=== PATIENT | male | born 1955 | race Caucasian/White ===

== ENCOUNTER 2021-09-20 18:00 | Inpatient (IN) | payer OTHER, MEDICARE ==
[2021-09-20] MEDS ORDERED: Aspirin Chewable 81 MG TAB ONE (18:28)
[2021-09-20 18:29] LABS: #Eosinphils 0.1 thou/uL (0.0-0.7); #Lymphocytes 1.5 thou/uL (1.20-3.40); #Monocytes 0.7 thou/uL (0.11-0.59); #Neutrophils 3.1 thou/uL (1.40-6.50); %Basophils 0.4 % (0.0-1.0); %Eosinophils 2.5 % (0.0-10.0); %Lymphocytes 28.2 % (21.0-51.0); %Monocytes 12.4 % (0.0-10.0); %Neutrophils 56.5 % (42.0-75.0); Hemoglobin 16.4 g/dL (14.0-18.0); Mean Corpuscular HGB CONC 32.6 g/dL (32.0-36.0); Mean Corpuscular Hemoglobin 28.6 pg (27.0-31.0); Mean Corpuscular Volume 87.5 fL (78.0-98.0); Mean Platelet Volume 7.6 fL (7.4-10.4); Platelet Count 220 thou/uL (130-400); RBC Distribution Width 12.8 % (11.5-14.5); Red Blood Cell (RBC) Count 5.73 mill/uL (4.70-6.10); White Blood Cell (WBC) Count 5.5 thou/uL (4.8-10.8)
[2021-09-20 19:01] LABS: ALT (SGPT) 48 U/L (8-55); AST (SGOT) 53 U/L (5-34); Albumin 4.1 g/dL (3.4-4.8); Alkaline Phosphatase 64 U/L (40-110); Anion Gap 13 mmol/L (10-20); BUN (Urea Nitrogen) 8 mg/dL (8.4-25.7); Bilirubin, Total 0.4 mg/dL (0.2-1.2); Calc. Creatinine Clearance 0 mL/min (70-130); Calcium 9.6 mg/dL (7.8-10.44); Carbon Dioxide 24 mmol/L (23-31); Chloride 102 mmol/L (98-107); Globulin 4.5 g/dL (2.4-3.5); Glucose 107 mg/dL (80-115); Lipase 38 U/L (8-78); Potassium 4.1 mmol/L (3.5-5.1); Protein, Total 8.6 g/dL (5.8-8.1); Sodium 135 mmol/L (136-145)
[2021-09-20] MEDS ORDERED: Enoxaparin Sodium 100 MG/ML SYRINGE ONE (19:05)
[2021-09-20] MEDS ORDERED: Communication Order-Pharmacy FS SCH (19:45)
[2021-09-20] MEDS ORDERED: Ondansetron ODT 4 MG TAB PO PRN (20:01)
[2021-09-20] MEDS ORDERED: Acetaminophen 650 MG Suppository PR PRN (20:01)
[2021-09-20] MEDS ORDERED: Acetaminophen 325 MG TAB PO PRN (20:01)
[2021-09-20] MEDS ORDERED: Ondansetron PF 4 MG/2 ML Vial IVP PRN (20:01)
[2021-09-20 20:39] LABS: SARS-CoV-2 NAA Rapid Test Not Detected (NotDetected)
[2021-09-20 22:05] VITALS: BMI 31.7
[2021-09-20] MEDS: Nitroglycerin 2% Ointment 1 INCH/1 GM Packet TOP SCH (22:16)
[2021-09-20 22:44] LABS: Troponin I 1.092 ng/mL (< 0.028)
[2021-09-20] MEDS ORDERED: Meropenem 1 GM in Sodium Chloride 0.9% 100 ML IVPB SCH (23:14)
[2021-09-21 05:43] LABS: #Eosinphils 0.1 thou/uL (0.0-0.7); #Lymphocytes 1.7 thou/uL (1.20-3.40); #Monocytes 0.7 thou/uL (0.11-0.59); #Neutrophils 2.4 thou/uL (1.40-6.50); %Basophils 0.4 % (0.0-1.0); %Eosinophils 2.6 % (0.0-10.0); %Lymphocytes 34.8 % (21.0-51.0); %Monocytes 13.5 % (0.0-10.0); %Neutrophils 48.7 % (42.0-75.0); Hemoglobin 15.4 g/dL (14.0-18.0); Mean Corpuscular HGB CONC 34.7 g/dL (32.0-36.0); Mean Corpuscular Hemoglobin 30.4 pg (27.0-31.0); Mean Corpuscular Volume 87.6 fL (78.0-98.0); Mean Platelet Volume 7.8 fL (7.4-10.4); Platelet Count 174 thou/uL (130-400); RBC Distribution Width 12.7 % (11.5-14.5); Red Blood Cell (RBC) Count 5.05 mill/uL (4.70-6.10); White Blood Cell (WBC) Count 4.9 thou/uL (4.8-10.8)
[2021-09-21] MEDS: Nitroglycerin 2% Ointment 1 INCH/1 GM Packet TOP SCH ×3 (06:02→23:18)
[2021-09-21 06:05] LABS: Anion Gap 13 mmol/L (10-20); BUN (Urea Nitrogen) 11 mg/dL (8.4-25.7); Calc. Creatinine Clearance 98 mL/min (70-130); Calcium 9.2 mg/dL (7.8-10.44); Carbon Dioxide 24 mmol/L (23-31); Chloride 103 mmol/L (98-107); Glucose 86 mg/dL (80-115); Potassium 4.3 mmol/L (3.5-5.1); Sodium 136 mmol/L (136-145)
[2021-09-21] MEDS ORDERED: Lidocaine 1% (PF) 30 ML VIAL ONE (08:26)
[2021-09-21] MEDS ORDERED: Midazolam HCl 2 mg/2 ml Vial ONE (08:54)
[2021-09-21] MEDS ORDERED: Fentanyl 100 MCG/2 ML VIAL ONE (08:54)
[2021-09-21] MEDS ORDERED: Enoxaparin Sodium 100 MG/ML SYRINGE SC SCH ×2 (09:00→13:00)
[2021-09-21] MEDS ORDERED: Iopamidol 370 76% 100 ML VIAL ONE (09:06)
[2021-09-21] MEDS: Aspirin Chewable 81 MG TAB PO SCH (09:53)
[2021-09-21] MEDS ORDERED: Nitroglycerin 0.4 MG TAB (25 Tab Bottle) SL PRN (09:54)
[2021-09-21] MEDS ORDERED: Acetaminophen/Codeine 30-300mg Tablet PO PRN (09:54)
[2021-09-21] MEDS ORDERED: Sodium Chloride 0.9% 200 ML IV PRN (09:54)
[2021-09-21] MEDS ORDERED: Sodium Chloride 0.9% 500 ML IV SCH (10:00)
[2021-09-21] MEDS ORDERED: Lisinopril 5 MG TAB PO SCH (15:00)
[2021-09-21] MEDS ORDERED: Communication Order-Pharmacy FS SCH (17:10)
[2021-09-21] MEDS: Lisinopril 5 MG TAB PO SCH (20:29)
[2021-09-21] MEDS: Atorvastatin Calcium 40 MG TAB PO SCH (20:29)
[2021-09-21] MEDS: Enoxaparin Sodium 100 MG/ML SYRINGE SC SCH (20:30)
[2021-09-22 06:20] LABS: #Eosinphils 0.1 thou/uL (0.0-0.7); #Lymphocytes 1.5 thou/uL (1.20-3.40); #Monocytes 0.5 thou/uL (0.11-0.59); #Neutrophils 2.6 thou/uL (1.40-6.50); %Basophils 0.7 % (0.0-1.0); %Eosinophils 2.2 % (0.0-10.0); %Lymphocytes 31.6 % (21.0-51.0); %Monocytes 10.9 % (0.0-10.0); %Neutrophils 54.6 % (42.0-75.0); Hemoglobin 15.5 g/dL (14.0-18.0); Mean Corpuscular HGB CONC 34.3 g/dL (32.0-36.0); Mean Corpuscular Hemoglobin 30.2 pg (27.0-31.0); Mean Corpuscular Volume 87.9 fL (78.0-98.0); Mean Platelet Volume 7.3 fL (7.4-10.4); Platelet Count 171 thou/uL (130-400); RBC Distribution Width 12.8 % (11.5-14.5); Red Blood Cell (RBC) Count 5.13 mill/uL (4.70-6.10); White Blood Cell (WBC) Count 4.7 thou/uL (4.8-10.8)
[2021-09-22 06:41] LABS: Anion Gap 14 mmol/L (10-20); BUN (Urea Nitrogen) 12 mg/dL (8.4-25.7); Calc. Creatinine Clearance 93 mL/min (70-130); Carbon Dioxide 23 mmol/L (23-31); Chloride 102 mmol/L (98-107); Glucose 83 mg/dL (80-115); Magnesium 2.1 mg/dL (1.6-2.6); Potassium 4.3 mmol/L (3.5-5.1); Sodium 135 mmol/L (136-145)
[2021-09-22] MEDS: Nitroglycerin 2% Ointment 1 INCH/1 GM Packet TOP SCH ×3 (07:04→23:08)
[2021-09-22] MEDS: Aspirin Chewable 81 MG TAB PO SCH (08:31)
[2021-09-22] MEDS: Enoxaparin Sodium 100 MG/ML SYRINGE SC SCH ×2 (08:31→21:02)
[2021-09-22] MEDS: Lisinopril 5 MG TAB PO SCH ×2 (08:31→21:03)
[2021-09-22] MEDS ORDERED: Lisinopril 5 MG TAB PO SCH (09:00)
[2021-09-22] MEDS ORDERED: hydrALAZINE 25 MG TAB PO PRN (10:17)
[2021-09-22] MEDS: Polyethylene Glycol 3350 17 GM Packet PO PRN (14:46)
[2021-09-22] MEDS: Senokot S 8.6-50 MG TAB PO SCH (21:02)
[2021-09-22] MEDS: Atorvastatin Calcium 40 MG TAB PO SCH (21:02)
[2021-09-23] MEDS: Nitroglycerin 2% Ointment 1 INCH/1 GM Packet TOP SCH ×4 (05:25→22:55)
[2021-09-23 06:01] LABS: Magnesium 2.1 mg/dL (1.6-2.6)
[2021-09-23] MEDS: Enoxaparin Sodium 100 MG/ML SYRINGE SC SCH (08:13)
[2021-09-23] MEDS: Aspirin Chewable 81 MG TAB PO SCH (08:13)
[2021-09-23] MEDS: Senokot S 8.6-50 MG TAB PO SCH ×2 (08:13→20:01)
[2021-09-23] MEDS: Lisinopril 5 MG TAB PO SCH ×2 (08:13→20:01)
[2021-09-23] MEDS ORDERED: FLU VACC QS2021-22(65YR UP)/PF 240 MCG/0.7 ML SYRINGE IM ONE (09:00)
[2021-09-23] MEDS: Polyethylene Glycol 3350 17 GM Packet PO PRN (17:48)
[2021-09-23] MEDS: Atorvastatin Calcium 40 MG TAB PO SCH (20:01)
[2021-09-24] MEDS: Nitroglycerin 2% Ointment 1 INCH/1 GM Packet TOP SCH (06:20)
[2021-09-24] MEDS: Lisinopril 5 MG TAB PO SCH (06:20)
[2021-09-24 06:21] LABS: #Eosinphils 0.2 thou/uL (0.0-0.7); #Lymphocytes 1.1 thou/uL (1.20-3.40); #Monocytes 0.6 thou/uL (0.11-0.59); #Neutrophils 3.4 thou/uL (1.40-6.50); %Basophils 0.5 % (0.0-1.0); %Lymphocytes 21.5 % (21.0-51.0); %Monocytes 11.9 % (0.0-10.0); %Neutrophils 63.1 % (42.0-75.0); Hemoglobin 16.2 g/dL (14.0-18.0); Mean Corpuscular HGB CONC 35.1 g/dL (32.0-36.0); Mean Corpuscular Hemoglobin 30.6 pg (27.0-31.0); Mean Corpuscular Volume 87.2 fL (78.0-98.0); Mean Platelet Volume 7.5 fL (7.4-10.4); Platelet Count 183 thou/uL (130-400); RBC Distribution Width 12.6 % (11.5-14.5); Red Blood Cell (RBC) Count 5.32 mill/uL (4.70-6.10); White Blood Cell (WBC) Count 5.3 thou/uL (4.8-10.8)
[2021-09-24] MEDS ORDERED: Albumin 5% 500 ML ONE (06:24)
[2021-09-24 06:39] LABS: Anion Gap 12 mmol/L (10-20); BUN (Urea Nitrogen) 10 mg/dL (8.4-25.7); Calc. Creatinine Clearance 94 mL/min (70-130); Calcium 9.4 mg/dL (7.8-10.44); Carbon Dioxide 26 mmol/L (23-31); Chloride 100 mmol/L (98-107); Glucose 90 mg/dL (80-115); Potassium 4.3 mmol/L (3.5-5.1); Sodium 134 mmol/L (136-145)
[2021-09-24] MEDS ORDERED: Midazolam HCl 5 mg/5 ml Vial ONE (06:59)
[2021-09-24] MEDS ORDERED: Dexmedetomidine 200 MCG/2 ML VIAL ONE (06:59)
[2021-09-24] MEDS ORDERED: Fentanyl 250 MCG/5 ML VIAL ONE (06:59)
[2021-09-24] MEDS ORDERED: Heparin 10,000 UNITS/1 ML VIAL 30,000 UNITS in Sodium Chloride 0.9% 1,000 ML FS SCH (07:00)
[2021-09-24] MEDS ORDERED: Heparin 5,000 UNITS/ML VIAL ONE ×2 (07:03→07:44)
[2021-09-24] MEDS ORDERED: ceFAZolin 2 GM/DEX 5% 100 ML BAG ONE (07:07)
[2021-09-24] MEDS ORDERED: Glycopyrrolate 0.2 MG/ML 5 ML SYRINGE ONE (07:44)
[2021-09-24] MEDS ORDERED: PROPOFOL 200 MG/20 ML VIAL ONE (07:44)
[2021-09-24] MEDS ORDERED: Papaverine 60 MG/2 ML VIAL ONE (07:44)
[2021-09-24] MEDS ORDERED: Thrombin 5000 UNITS/5 ML VIAL ONE (07:44)
[2021-09-24] MEDS ORDERED: Calcium Chloride 1 GM/10 ML Abboject SYRINGE ONE (07:44)
[2021-09-24] MEDS ORDERED: Ondansetron PF 4 MG/2 ML Vial ONE (07:44)
[2021-09-24] MEDS ORDERED: Cardioplegic Soln 1,000 ML BAG ONE (07:44)
[2021-09-24] MEDS ORDERED: Aminocaproic Acid 5 GM/20 ML VIAL ONE (07:44)
[2021-09-24] MEDS ORDERED: Lidocaine 2% PF 100 mg/5 ml Syringe ONE (07:44)
[2021-09-24] MEDS ORDERED: Heparin 30,000 units/30 ml VIAL ONE (07:44)
[2021-09-24] MEDS ORDERED: Potassium Chloride 60 MEQ/30 ML VIAL ONE (07:44)
[2021-09-24] MEDS ORDERED: Protamine Sulfate 250 MG/25 ML VIAL ONE (07:44)
[2021-09-24] MEDS ORDERED: Vecuronium 10 MG VIAL ONE (07:44)
[2021-09-24] MEDS ORDERED: Magnesium Sulfate 1 GM/2 ML VIAL ONE (07:44)
[2021-09-24] MEDS ORDERED: Lidocaine 1% PF 5 ML VIAL ONE (07:44)
[2021-09-24] MEDS ORDERED: Nitroglycerin 50 MG/250 ML BOT ONE (07:44)
[2021-09-24] MEDS ORDERED: Dexamethasone 20 MG/5 ML VIAL ONE (07:44)
[2021-09-24] MEDS ORDERED: Mannitol 12.5 GM/50 ML ONE (07:44)
[2021-09-24] MEDS ORDERED: Sodium Bicarb 50 MEQ/50 ML Abboject 8.4% SYRINGE ONE (07:44)
[2021-09-24] MEDS ORDERED: niCARdipine 25 MG in Sodium Chloride 0.9% 250 ML 240 ML IVPB PRN (12:38)
[2021-09-24] MEDS ORDERED: Hetastarch 6% 500 ML 500 ML IVPB PRN (12:38)
[2021-09-24] MEDS ORDERED: Morphine 2 MG/ML VIAL SLOW IVP PRN (12:38)
[2021-09-24] MEDS ORDERED: Promethazine HCl 25 MG/ML VIAL IM PRN (12:38)
[2021-09-24] MEDS ORDERED: Nitroglycerin 50 MG/250 ML BOT 250 ML IVPB PRN (12:38)
[2021-09-24] MEDS ORDERED: Mag-Al 1200 mg/1200 mg/30 ML UDCUP PO PRN (12:38)
[2021-09-24] MEDS ORDERED: Ondansetron PF 4 MG/2 ML Vial IVP PRN (12:38)
[2021-09-24] MEDS ORDERED: hydrALAZINE 20 MG/ML VIAL SLOW IVP PRN (12:38)
[2021-09-24] MEDS ORDERED: Norepinephrine 8 MG/0.9% NS 250 ML IVPB PRN (12:38)
[2021-09-24] MEDS ORDERED: Potassium Chloride 20 MEQ/100 ML PREMIX BAG IVPB PRN (12:38)
[2021-09-24] MEDS ORDERED: Bisacodyl 5 MG TAB PO PRN (12:38)
[2021-09-24] MEDS ORDERED: Post-Op Insulin Drip Protocol IVPB ONE (12:38)
[2021-09-24] MEDS ORDERED: DOPamine 400 MG/D5W 250 ML 250 ML IVPB PRN (12:38)
[2021-09-24] MEDS ORDERED: Guaifenesin DM 100-10/5 ML UDCUP PO PRN (12:38)
[2021-09-24] MEDS ORDERED: Acetaminophen 325 MG TAB PO PRN (12:38)
[2021-09-24] MEDS ORDERED: HYDROcodone/Acetaminophen 5/325 mg Tablet PO PRN ×2 (12:38)
[2021-09-24] MEDS ORDERED: Bisacodyl 10 MG SUPP PR PRN (12:38)
[2021-09-24] MEDS ORDERED: Fentanyl 100 MCG/2 ML VIAL SLOW IVP PRN ×2 (12:38)
[2021-09-24 12:50] LABS: Actual Bicarbonate (HCO3a) 22.2 mEq/L (22-28); Base Excess (BEa) -2.9 mEq/L (-2.0 to +3.0); CO2 Tension 39.9 mmHg (35.0-45.0); Calcium, Ionized (arterial) 1.06 mmol/L (1.12-1.30); Carboxyhemoglobin (COHb) 0.6 gm% (0.0-3.0); Hemoglobin (Hb) 13.3 g/dL (14.0-18.0); O2 Tension (PaO2), arterial 111.8 mmHg (> 80.0); Potassium - ABG Lab 4.26 mmol/L (3.70-5.30); pH, Arterial 7.36 (7.35-7.45)
[2021-09-24] MEDS: Lactated Ringer's 1,000 ML IV SCH (12:50)
[2021-09-24 12:51] LABS: #Eosinphils 0.1 thou/uL (0.0-0.7); #Lymphocytes 0.8 thou/uL (1.20-3.40); #Monocytes 0.8 thou/uL (0.11-0.59); #Neutrophils 8.7 thou/uL (1.40-6.50); %Basophils 0.3 % (0.0-1.0); %Eosinophils 0.7 % (0.0-10.0); %Lymphocytes 7.6 % (21.0-51.0); %Monocytes 7.7 % (0.0-10.0); %Neutrophils 83.7 % (42.0-75.0); Hemoglobin 13.4 g/dL (14.0-18.0); Mean Corpuscular Hemoglobin 30.5 pg (27.0-31.0); Mean Corpuscular Volume 87.1 fL (78.0-98.0); Mean Platelet Volume 7.3 fL (7.4-10.4); Platelet Count 126 thou/uL (130-400); RBC Distribution Width 12.5 % (11.5-14.5); Red Blood Cell (RBC) Count 4.39 mill/uL (4.70-6.10); White Blood Cell (WBC) Count 10.4 thou/uL (4.8-10.8)
[2021-09-24 12:52] LABS: Puncture Site Arterial Line
[2021-09-24 12:53] LABS: ALV-art Gradient 266.125 mmHg (0-20)
[2021-09-24] MEDS ORDERED: HUMULIN R 100 UNITS in Sodium Chloride 0.9% 100 ML IVPB SCH (13:00)
[2021-09-24] MEDS ORDERED: Dextrose 5% in Water 1,000 ML IV PRN (13:00)
[2021-09-24] MEDS: Senokot S 8.6-50 MG TAB PO SCH (13:00)
[2021-09-24] MEDS ORDERED: Dextrose 50% Abboject 50 ML SYRINGE SLOW IVP PRN (13:00)
[2021-09-24 13:08] LABS: INR-International Normal Ratio 1.4; Prothrombin Time 17.8 sec (12.0-14.7)
[2021-09-24 13:24] LABS: Anion Gap 15 mmol/L (10-20); BUN (Urea Nitrogen) 10 mg/dL (8.4-25.7); Calc. Creatinine Clearance 107 mL/min (70-130); Calcium 7.8 mg/dL (7.8-10.44); Carbon Dioxide 19 mmol/L (23-31); Chloride 107 mmol/L (98-107); Glucose 101 mg/dL (80-115); Potassium 4.5 mmol/L (3.5-5.1); Sodium 136 mmol/L (136-145)
[2021-09-24] MEDS: Insulin Regular 300 UNITS/3 ML VIAL SC PRN ×2 (14:53→18:43)
[2021-09-24] MEDS: ceFAZolin Sodium/D5W 2 GM in Premix Bag 1 BAG IVPB SCH ×2 (14:54→20:35)
[2021-09-24 15:34] LABS: Actual Bicarbonate (HCO3a) 19.7 mEq/L (22-28); Base Excess (BEa) -4.6 mEq/L (-2.0 to +3.0); CO2 Tension 34.3 mmHg (35.0-45.0); Calcium, Ionized (arterial) 1.07 mmol/L (1.12-1.30); Carboxyhemoglobin (COHb) 0.8 gm% (0.0-3.0); Hemoglobin (Hb) 14.2 g/dL (14.0-18.0); O2 Tension (PaO2), arterial 126.1 mmHg (> 80.0); Potassium - ABG Lab 4.65 mmol/L (3.70-5.30); pH, Arterial 7.38 (7.35-7.45)
[2021-09-24 15:50] LABS: ALV-art Gradient 116.225 mmHg (0-20); Puncture Site Arterial Line
[2021-09-24] MEDS: Ketorolac Tromethamine 30 MG/ML VIAL IVP SCH ×2 (17:35→23:44)
[2021-09-24 18:52] LABS: Hemoglobin 13.5 g/dL (14.0-18.0)
[2021-09-24 19:08] LABS: Potassium 4.4 mmol/L (3.5-5.1)
[2021-09-24] MEDS: Atorvastatin Calcium 20 MG TAB PO SCH (20:33)
[2021-09-24] MEDS ORDERED: Famotidine/PF 20 mg/2ml Vial SLOW IVP SCH (21:00)
[2021-09-25] MEDS: Lactated Ringer's 1,000 ML IV SCH (02:44)
[2021-09-25 04:12] LABS: #Lymphocytes 0.9 thou/uL (1.20-3.40); #Monocytes 1.5 thou/uL (0.11-0.59); #Neutrophils 12.7 thou/uL (1.40-6.50); %Basophils 0.1 % (0.0-1.0); %Eosinophils 0.1 % (0.0-10.0); %Lymphocytes 5.9 % (21.0-51.0); %Monocytes 9.6 % (0.0-10.0); %Neutrophils 84.2 % (42.0-75.0); Hemoglobin 11.9 g/dL (14.0-18.0); Mean Corpuscular HGB CONC 32.7 g/dL (32.0-36.0); Mean Corpuscular Volume 88.8 fL (78.0-98.0); Mean Platelet Volume 7.9 fL (7.4-10.4); Platelet Count 138 thou/uL (130-400); RBC Distribution Width 12.7 % (11.5-14.5); Red Blood Cell (RBC) Count 4.12 mill/uL (4.70-6.10); White Blood Cell (WBC) Count 15.1 thou/uL (4.8-10.8)
[2021-09-25 04:39] LABS: Anion Gap 11 mmol/L (10-20); BUN (Urea Nitrogen) 12 mg/dL (8.4-25.7); Calc. Creatinine Clearance 89 mL/min (70-130); Carbon Dioxide 23 mmol/L (23-31); Chloride 105 mmol/L (98-107); Glucose 127 mg/dL (80-115); Potassium 4.4 mmol/L (3.5-5.1); Sodium 135 mmol/L (136-145)
[2021-09-25] MEDS: ceFAZolin Sodium/D5W 2 GM in Premix Bag 1 BAG IVPB SCH (05:23)
[2021-09-25] MEDS: Ketorolac Tromethamine 30 MG/ML VIAL IVP SCH ×3 (05:23→18:24)
[2021-09-25] MEDS ORDERED: Nitroglycerin 0.4 MG TAB (25 Tab Bottle) SL PRN (07:47)
[2021-09-25] MEDS ORDERED: Mineral Oil ENEMA PR PRN (07:47)
[2021-09-25] MEDS: Aspirin 325 MG TAB PO SCH (12:00)
[2021-09-25] MEDS: Clopidogrel Bisulfate 75 MG TAB PO SCH (12:00)
[2021-09-25 13:59] LABS: Actual Bicarbonate (HCO3a) 20.6 mEq/L (22-28); Analyzer IN Cardio OR; Base Excess (BEa) -4.1 mEq/L (-2.0 to +3.0); CO2 Tension 36.7 mmHg (35.0-45.0); Calcium, Ionized (arterial) 1.02 mmol/L (1.12-1.30); Carboxyhemoglobin (COHb) 0.3 gm% (0.0-3.0); Hemoglobin (Hb) 12.4 g/dL (14.0-18.0); O2 Tension (PaO2), arterial 373.3 mmHg (> 80.0); Potassium - ABG Lab 4.06 mmol/L (3.70-5.30); pH, Arterial 7.37 (7.35-7.45)
[2021-09-25 14:00] LABS: Actual Bicarbonate (HCO3a) 20.5 mEq/L (22-28); Analyzer IN Cardio OR; Base Excess (BEa) -3.2 mEq/L (-2.0 to +3.0); Calcium, Ionized (arterial) 1.03 mmol/L (1.12-1.30); Carboxyhemoglobin (COHb) 0.5 gm% (0.0-3.0); Hemoglobin (Hb) 10.6 g/dL (14.0-18.0); O2 Tension (PaO2), arterial 292.7 mmHg (> 80.0); Potassium - ABG Lab 4.73 mmol/L (3.70-5.30); pH, Arterial 7.43 (7.35-7.45)
[2021-09-25 14:00] LABS: Actual Bicarbonate (HCO3a) 22.8 mEq/L (22-28); Analyzer IN Cardio OR; Base Excess (BEa) -1.8 mEq/L (-2.0 to +3.0); CO2 Tension 38.4 mmHg (35.0-45.0); Calcium, Ionized (arterial) 0.97 mmol/L (1.12-1.30); Carboxyhemoglobin (COHb) 0.5 gm% (0.0-3.0); Hemoglobin (Hb) 10.2 g/dL (14.0-18.0); O2 Tension (PaO2), arterial 418.7 mmHg (> 80.0); Potassium - ABG Lab 5.92 mmol/L (3.70-5.30); pH, Arterial 7.39 (7.35-7.45)
[2021-09-25 14:01] LABS: Actual Bicarbonate (HCO3a) 20.5 mEq/L (22-28); Analyzer IN Cardio OR; Base Excess (BEa) -3.2 mEq/L (-2.0 to +3.0); CO2 Tension 33.2 mmHg (35.0-45.0); Calcium, Ionized (arterial) 1.09 mmol/L (1.12-1.30); Carboxyhemoglobin (COHb) 0.9 gm% (0.0-3.0); Hemoglobin (Hb) 14.5 g/dL (14.0-18.0); O2 Tension (PaO2), arterial 412.5 mmHg (> 80.0); Potassium - ABG Lab 4.53 mmol/L (3.70-5.30); pH, Arterial 7.41 (7.35-7.45)
[2021-09-25 14:01] LABS: Actual Bicarbonate (HCO3v) 23 mEq/L (22-28); Analyzer IN Cardio OR; Base Excess -2.5 mEq/L (-2.0 to +3.0); Calcium, Ionized (venous) 0.99 mmol/L (1.16-1.32); Chloride (VBG) 101 mmol/L (98-106); Hemoglobin (Hb) 10.4 g/dL (12.6-17.4); Potassium (VBG) 5.88 mmol/L (3.70-5.30); pH (venous) 7.36 (7.32-7.43)
[2021-09-25 14:01] LABS: Actual Bicarbonate (HCO3a) 20.5 mEq/L (22-28); Analyzer IN Cardio OR; Base Excess (BEa) -3.3 mEq/L (-2.0 to +3.0); CO2 Tension 32.4 mmHg (35.0-45.0); Carboxyhemoglobin (COHb) 0.2 gm% (0.0-3.0); Hemoglobin (Hb) 10.7 g/dL (14.0-18.0); O2 Tension (PaO2), arterial 355.3 mmHg (> 80.0); Potassium - ABG Lab 5.37 mmol/L (3.70-5.30); pH, Arterial 7.42 (7.35-7.45)
[2021-09-25 14:02] LABS: Actual Bicarbonate (HCO3a) 21.4 mEq/L (22-28); Analyzer IN Cardio OR; Base Excess (BEa) -3.8 mEq/L (-2.0 to +3.0); CO2 Tension 39.6 mmHg (35.0-45.0); Calcium, Ionized (arterial) 1.13 mmol/L (1.12-1.30); Carboxyhemoglobin (COHb) 2.1 gm% (0.0-3.0); Hemoglobin (Hb) 14.9 g/dL (14.0-18.0); O2 Tension (PaO2), arterial 291.6 mmHg (> 80.0); Potassium - ABG Lab 4.12 mmol/L (3.70-5.30); pH, Arterial 7.35 (7.35-7.45)
[2021-09-25 14:02] LABS: Puncture Site Arterial Line
[2021-09-25 14:03] LABS: Puncture Site Arterial Line
[2021-09-25 14:05] LABS: Puncture Site Arterial Line
[2021-09-25 14:05] LABS: Puncture Site Arterial Line
[2021-09-25 14:05] LABS: Puncture Site Arterial Line
[2021-09-25 14:06] LABS: Puncture Site Arterial Line
[2021-09-25 20:15] LABS: ALT (SGPT) 15 U/L (8-55); AST (SGOT) 31 U/L (5-34); Albumin 3.3 g/dL (3.4-4.8); Alkaline Phosphatase 31 U/L (40-110); Bilirubin, Direct 0.5 mg/dL (0.1-0.3); Bilirubin, Total 0.9 mg/dL (0.2-1.2); Magnesium 2.1 mg/dL (1.6-2.6); Protein, Total 5.9 g/dL (5.8-8.1)
[2021-09-25] MEDS: Amiodarone 450 MG in Dextrose 5% in Water 250 ML IVPB SCH (20:30)
[2021-09-25] MEDS: Atorvastatin Calcium 20 MG TAB PO SCH (20:38)
[2021-09-26] MEDS: Ketorolac Tromethamine 30 MG/ML VIAL IVP SCH ×2 (00:37→06:35)
[2021-09-26 05:17] LABS: Anion Gap 14 mmol/L (10-20); BUN (Urea Nitrogen) 24 mg/dL (8.4-25.7); Calc. Creatinine Clearance 81 mL/min (70-130); Calcium 8.1 mg/dL (7.8-10.44); Carbon Dioxide 20 mmol/L (23-31); Chloride 101 mmol/L (98-107); Glucose 102 mg/dL (80-115); Potassium 4.5 mmol/L (3.5-5.1); Sodium 130 mmol/L (136-145)
[2021-09-26] MEDS: Amiodarone 450 MG in Dextrose 5% in Water 250 ML IVPB SCH ×2 (06:13→21:10)
[2021-09-26] MEDS: Clopidogrel Bisulfate 75 MG TAB PO SCH (09:17)
[2021-09-26] MEDS: Aspirin 325 MG TAB PO SCH (09:17)
[2021-09-26] MEDS: Polyethylene Glycol 3350 17 GM Packet PO PRN (09:21)
[2021-09-26] MEDS: Atorvastatin Calcium 20 MG TAB PO SCH (21:10)
[2021-09-27 04:57] LABS: Anion Gap 11 mmol/L (10-20); BUN (Urea Nitrogen) 20 mg/dL (8.4-25.7); Calc. Creatinine Clearance 100 mL/min (70-130); Calcium 7.9 mg/dL (7.8-10.44); Carbon Dioxide 26 mmol/L (23-31); Chloride 97 mmol/L (98-107); Glucose 100 mg/dL (80-115); Potassium 4.1 mmol/L (3.5-5.1); Sodium 130 mmol/L (136-145)
[2021-09-27] MEDS: Clopidogrel Bisulfate 75 MG TAB PO SCH (08:58)
[2021-09-27] MEDS: Aspirin 325 MG TAB PO SCH (08:58)
[2021-09-27] MEDS: Lisinopril 5 MG TAB PO SCH (08:58)
[2021-09-27] MEDS ORDERED: Amiodarone 200 MG TAB PO SCH (09:00)
[2021-09-27] MEDS: Amiodarone 450 MG in Dextrose 5% in Water 250 ML IVPB SCH (16:27)
[2021-09-27] MEDS: Atorvastatin Calcium 20 MG TAB PO SCH (20:18)
[2021-09-28] MEDS: Amiodarone 450 MG in Dextrose 5% in Water 250 ML IVPB SCH (03:50)
[2021-09-28] MEDS: Enoxaparin Sodium 40 MG/0.4 ML SYRINGE SC SCH ×2 (08:43→20:01)
[2021-09-28] MEDS: Aspirin Chewable 81 MG TAB PO SCH (08:44)
[2021-09-28] MEDS: Lisinopril 5 MG TAB PO SCH (08:44)
[2021-09-28] MEDS: Carvedilol 3.125 MG TAB PO SCH ×2 (08:44→17:50)
[2021-09-28] MEDS: Clopidogrel Bisulfate 75 MG TAB PO SCH (08:44)
[2021-09-28] MEDS: Furosemide 40 MG TAB PO SCH (08:44)
[2021-09-28 11:56] LABS: SARS-CoV-2 PCR by NAA Not Detected (NotDetected)
[2021-09-28] MEDS: Atorvastatin Calcium 20 MG TAB PO SCH (20:01)
[2021-09-28] MEDS: Polyethylene Glycol 3350 17 GM Packet PO PRN (20:01)
[2021-09-28] MEDS: Amiodarone 200 MG TAB PO SCH (20:01)
[2021-09-29] MEDS: Enoxaparin Sodium 40 MG/0.4 ML SYRINGE SC SCH ×2 (09:26→21:07)
[2021-09-29] MEDS: Lisinopril 5 MG TAB PO SCH (09:26)
[2021-09-29] MEDS: Aspirin Chewable 81 MG TAB PO SCH (09:26)
[2021-09-29] MEDS: Furosemide 40 MG TAB PO SCH (09:27)
[2021-09-29] MEDS: Clopidogrel Bisulfate 75 MG TAB PO SCH (09:27)
[2021-09-29] MEDS: Carvedilol 3.125 MG TAB PO SCH ×2 (09:27→17:08)
[2021-09-29] MEDS: Amiodarone 200 MG TAB PO SCH ×2 (09:27→21:08)
[2021-09-29] MEDS ORDERED: Amiodarone 450 MG in Dextrose 5% in Water 250 ML IVPB SCH (12:30)
[2021-09-29] MEDS ORDERED: Amiodarone 150 MG in Dextrose 5% in Water 100 ML IVPB SCH (12:30)
[2021-09-29] MEDS: Atorvastatin Calcium 20 MG TAB PO SCH (21:08)
[2021-09-30 05:14] LABS: #Eosinphils 0.2 thou/uL (0.0-0.7); #Lymphocytes 1.7 thou/uL (1.20-3.40); #Neutrophils 6.9 thou/uL (1.40-6.50); %Basophils 0.1 % (0.0-1.0); %Eosinophils 1.7 % (0.0-10.0); %Lymphocytes 17.5 % (21.0-51.0); %Monocytes 10.3 % (0.0-10.0); %Neutrophils 70.5 % (42.0-75.0); Hemoglobin 11.5 g/dL (14.0-18.0); Mean Corpuscular HGB CONC 32.4 g/dL (32.0-36.0); Mean Corpuscular Volume 89.6 fL (78.0-98.0); Mean Platelet Volume 7.2 fL (7.4-10.4); Platelet Count 342 thou/uL (130-400); RBC Distribution Width 13.6 % (11.5-14.5); Red Blood Cell (RBC) Count 3.96 mill/uL (4.70-6.10); White Blood Cell (WBC) Count 9.8 thou/uL (4.8-10.8)
[2021-09-30 05:28] LABS: Anion Gap 11 mmol/L (10-20); BUN (Urea Nitrogen) 12 mg/dL (8.4-25.7); Calc. Creatinine Clearance 95 mL/min (70-130); Calcium 8.4 mg/dL (7.8-10.44); Carbon Dioxide 26 mmol/L (23-31); Chloride 98 mmol/L (98-107); Glucose 94 mg/dL (80-115); Magnesium 2.1 mg/dL (1.6-2.6); Potassium 3.9 mmol/L (3.5-5.1); Sodium 131 mmol/L (136-145)
[2021-09-30] MEDS: Amiodarone 200 MG TAB PO SCH ×2 (09:16→20:16)
[2021-09-30] MEDS: Clopidogrel Bisulfate 75 MG TAB PO SCH (09:16)
[2021-09-30] MEDS: Aspirin Chewable 81 MG TAB PO SCH (09:16)
[2021-09-30] MEDS: Furosemide 40 MG TAB PO SCH (09:16)
[2021-09-30] MEDS: Enoxaparin Sodium 40 MG/0.4 ML SYRINGE SC SCH ×2 (09:17→20:15)
[2021-09-30] MEDS: Lisinopril 5 MG TAB PO SCH (09:17)
[2021-09-30] MEDS: Carvedilol 3.125 MG TAB PO SCH ×2 (09:18→16:57)
[2021-09-30] MEDS: Atorvastatin Calcium 20 MG TAB PO SCH (20:16)
[2021-10-01 05:32] LABS: #Eosinphils 0.1 thou/uL (0.0-0.7); #Lymphocytes 1.6 thou/uL (1.20-3.40); #Monocytes 0.9 thou/uL (0.11-0.59); #Neutrophils 6.8 thou/uL (1.40-6.50); %Basophils 0.1 % (0.0-1.0); %Eosinophils 1.5 % (0.0-10.0); %Monocytes 9.5 % (0.0-10.0); %Neutrophils 71.9 % (42.0-75.0); Hemoglobin 11.6 g/dL (14.0-18.0); Mean Corpuscular HGB CONC 34.1 g/dL (32.0-36.0); Mean Corpuscular Hemoglobin 30.2 pg (27.0-31.0); Mean Corpuscular Volume 88.5 fL (78.0-98.0); Mean Platelet Volume 7.5 fL (7.4-10.4); Platelet Count 380 thou/uL (130-400); Red Blood Cell (RBC) Count 3.84 mill/uL (4.70-6.10); White Blood Cell (WBC) Count 9.5 thou/uL (4.8-10.8)
[2021-10-01 05:48] LABS: Anion Gap 11 mmol/L (10-20); BUN (Urea Nitrogen) 12 mg/dL (8.4-25.7); Calc. Creatinine Clearance 86 mL/min (70-130); Calcium 8.4 mg/dL (7.8-10.44); Carbon Dioxide 24 mmol/L (23-31); Chloride 97 mmol/L (98-107); Glucose 110 mg/dL (80-115); Magnesium 2.1 mg/dL (1.6-2.6); Potassium 3.5 mmol/L (3.5-5.1); Sodium 128 mmol/L (136-145)
[2021-10-01] MEDS: Amiodarone 200 MG TAB PO SCH (09:13)
[2021-10-01] MEDS: Aspirin Chewable 81 MG TAB PO SCH (09:14)
[2021-10-01] MEDS: Carvedilol 3.125 MG TAB PO SCH ×2 (09:14→16:29)
[2021-10-01] MEDS: Enoxaparin Sodium 40 MG/0.4 ML SYRINGE SC SCH (09:14)
[2021-10-01] MEDS: Lisinopril 5 MG TAB PO SCH (09:14)
[2021-10-01] MEDS: Furosemide 40 MG TAB PO SCH (09:14)
[2021-10-01] MEDS: Clopidogrel Bisulfate 75 MG TAB PO SCH (09:14)
[2021-10-01] MEDS ORDERED: Potassium Chloride 20 MEQ TAB PO SCH (10:45)
[2021-10-01 14:21] VITALS: TEMP 97.5
[2021-10-01 15:49] VITALS: BP 134/65
[2021-10-06] MEDS ORDERED: Amiodarone 200 MG TAB PO SCH (09:00)
== END 2021-10-01 18:30 | disposition home or self-care (01) | DRG 234 ==
LOC: ERS 18:00 → 2SW 19:27 → OBSVTOIN 09-21 15:47 → CCU 09-24 06:28 → 2SE 09-25 09:24 → 2NO 09-26 18:11
PROVIDERS: ADMIT Student in an Organized Health Care Education/Training Program; ATTEND Internal Medicine
PROC: 4A023N7 Measurement of Cardiac Sampling and Pressure, Left Heart, Percutaneous Approach (ICD-10-PCS; 2021-09-21)
PROC: B2111ZZ Fluoroscopy of Multiple Coronary Arteries using Low Osmolar Contrast (ICD-10-PCS; 2021-09-21)
PROC: B2151ZZ Fluoroscopy of Left Heart using Low Osmolar Contrast (ICD-10-PCS; 2021-09-21)
PROC: 02110Z9 Bypass Coronary Artery, Two Arteries from Left Internal Mammary, Open Approach (ICD-10-PCS; principal; 2021-09-24)
PROC: 02100AW Bypass Coronary Artery, One Artery from Aorta with Autologous Arterial Tissue, Open Approach (ICD-10-PCS; 2021-09-24)
PROC: 021109W Bypass Coronary Artery, Two Arteries from Aorta with Autologous Venous Tissue, Open Approach (ICD-10-PCS; 2021-09-24)
PROC: 03BC0ZZ Excision of Left Radial Artery, Open Approach (ICD-10-PCS; 2021-09-24)
PROC: 06BQ0ZZ Excision of Left Saphenous Vein, Open Approach (ICD-10-PCS; 2021-09-24)
PROC: 5A1221Z Performance of Cardiac Output, Continuous (ICD-10-PCS; 2021-09-24)
DX: I21.4 Non-ST elevation (NSTEMI) myocardial infarction (principal); I25.110 Atherosclerotic heart disease of native coronary artery with unstable angina pectoris; Z20.822 Contact with and (suspected) exposure to COVID-19; Z23 Encounter for immunization; E87.1 Hypo-osmolality and hyponatremia; I47.2 Ventricular tachycardia; I47.1 Supraventricular tachycardia; I10 Essential (primary) hypertension; F17.220 Nicotine dependence, chewing tobacco, uncomplicated; E78.5 Hyperlipidemia, unspecified; E66.9 Obesity, unspecified; I48.91 Unspecified atrial fibrillation; Z90.49 Acquired absence of other specified parts of digestive tract; Z82.49 Family history of ischemic heart disease and other diseases of the circulatory system; Z79.899 Other long term (current) drug therapy; Z68.31 Body mass index [BMI] 31.0-31.9, adult
CPT/HCPCS: 36415; 36416; 36430; 71045; 80048; 80053; 80076; 82805; 83690; 83735; 84443; 84484; 85025; 85610; 85730; 86850; 86900; 86901; 90471; 90662; 93005; 93010; 93306; 93458; 93798; 94002; 96372; 97139; 99152; G0008; G0378; J0282; J1100; J1642; J1644; J1650; J1815; J1885; J2001; J2150; J2250; J2405; J2440; J2704; J2720; J3010; J3370; J3475; J3480; J7030; J7070; J7120; P9045; Q9967; S0017; S0028; U0002; U0003; U0005

== ENCOUNTER 2022-09-20 11:45 | Emergency (ER) | payer OTHER ==
[2022-09-20] MEDS ORDERED: Acetaminophen 500 MG TAB ONE (13:20)
== END 2022-09-20 14:28 | disposition home or self-care (01) ==
LOC: ERS 11:45
DX: S29.012A Strain of muscle and tendon of back wall of thorax, initial encounter (principal); I10 Essential (primary) hypertension; F17.220 Nicotine dependence, chewing tobacco, uncomplicated; Z79.899 Other long term (current) drug therapy; V43.62XA Car passenger injured in collision with other type car in traffic accident, initial encounter
CPT/HCPCS: 71045; 72072; 72100